=== PATIENT | female | born 1950 | race Caucasian/White ===

== ENCOUNTER 2016-05-20 10:20 | Outpatient (CLI) | payer OTHER ==
[2015-06-10 13:59] VITALS: BMI 39.4
--- NOTE | 2016-05-20 12:27 | DI ---
Examination: Three radiographic images of the left shoulder. Comparison: Chest x-ray performed 06/10/2015. Reason for study: Pain. FINDINGS: No acute fracture or dislocation. The humeral head articulates with the bony glenoid. A chronic navicular joint spaces well maintained. Mild degenerative changes are seen within the left shoulder. Impression: No acute fracture or dislocation in the left shoulder.
== END 2016-05-20 10:21 | disposition home or self-care (01) ==
LOC: RAD 10:20
PROVIDERS: ATTEND Nurse Practitioner Family
DX: M25.512 Pain in left shoulder (principal)

== ENCOUNTER 2017-05-04 17:18 | Outpatient (CLI) ==
[2015-06-10 13:59] VITALS: BMI 39.4
== END 2017-05-04 17:19 | disposition home or self-care (01) ==
LOC: LAB 17:18
PROVIDERS: ATTEND Nurse Practitioner Family
DX: E78.1 Pure hyperglyceridemia (principal); I10 Essential (primary) hypertension; Z95.5 Presence of coronary angioplasty implant and graft
CPT/HCPCS: 36415; 80053; 80061; 85025